=== PATIENT | male | born 1970 | race Caucasian/White ===

== ENCOUNTER 2016-11-05 23:16 | Emergency (ER) | payer SELFPAY ==
[~2016-11-05] VITALS: Ht 182.9 cm; Wt 99.8 kg
[2016-11-05] MEDS ORDERED: ONDANSETRON PF 4 MG/2 ML VIAL. IV ONE (23:45)
[2016-11-05] MEDS ORDERED: HYDROMORPHONE 2 MG/ML VIAL. IV/SQ PRN (23:45)
[2016-11-05] MEDS ORDERED: IV NORMAL SALINE 1000ML BAG 1,000 ML IV SCH (23:45)
[2016-11-05] MEDS ORDERED: KETOROLAC 15 MG/ML VIAL. IV ONE (23:55)
[2016-11-06 00:03] LABS: BASO # 0.1 x10^3/uL (0.0-0.2); BASO % 1 % (0-3); EOS % 1 % (0-3); HEMATOCRIT 44.3 % (39.0-53.0); LYMPH % 28 % (24-48); MEAN CORPUSCULAR HEMOGLOBIN 30 pg (25-35); MEAN CORPUSCULAR HGB CONC 34 g/dL (31-37); MEAN CORPUSCULAR VOLUME 89 fL (79-100); MONO % 11 % (0-9); NEUT % 59 % (31-73); PLATELET COUNT 231 x10^3/uL (140-400); RED BLOOD COUNT 5.01 x10^6/uL (4.30-5.70); RED CELL DISTRIBUTION WIDTH 13.2 % (11.5-14.5); WHITE BLOOD COUNT 10.7 x10^3/uL (4.0-11.0)
[2016-11-06 00:14] LABS: CALCIUM 8.4 mg/dL (8.5-10.1); CREATININE 1.2 mg/dL (0.7-1.3); GFR 65.2; POTASSIUM 4.1 mmol/L (3.5-5.1)
[2016-11-06 00:19] LABS: ALBUMIN 3.4 g/dL (3.4-5.0); ALBUMIN/GLOBULIN RATIO 0.9 (1.0-1.7); TOTAL BILIRUBIN 0.2 mg/dL (0.2-1.0)
[2016-11-06 01:06] LABS: BILIRUBIN,URINE NEGATIVE (NEG); GLUCOSE,URINE NEGATIVE (NEG); NITRITE,URINE NEGATIVE (NEG); PROTEIN,URINE NEGATIVE (NEG-TRACE); UROBILINOGEN,URINE 0.2 mg/dL (0.2 mg/dL)
[2016-11-06 01:10] LABS: BACTERIA,URINE 0 /HPF (0-FEW); RBC,URINE OCC /HPF (0-2); WBC,URINE OCC /HPF (0-4)
[2016-11-06 01:11] LABS: SQUAMOUS EPITHELIAL CELL,UR FEW /LPF
--- NOTE | 2016-11-06 01:15 | RAD ---
INDICATION: Abdominal pain. COMPARISON: February 09, 2014 CT TECHNIQUE: Transabdominal ultrasound images are obtained of the abdomen. FINDINGS: Gallstones are visualized. There is some hyperechoic masslike structures the liver measuring up to 33 millimeter. Common bile duct not grossly dilated. Pancreas poorly seen IVC segmentally seen at liver. No right hydronephrosis. IMPRESSION: Liver is echogenic. Nonspecific but can be seen with fatty infiltration. There are least 3 echogenic solid-appearing lesions within the liver. Nonspecific appearance on ultrasound. Could be from causes such as hemangioma but more worrisome neoplastic causes are not excluded. Follow-up nonemergent CT or MRI liver protocol could better evaluate. Gallstones are seen. Electronically signed by: Keith Ricci (Nov 06, 2016 01:12:40)
[2016-11-06 01:31] VITALS: BP 116/78
[2016-11-06] MEDS ORDERED: HYOS0.1265 SL (01:36)
[2016-11-06] MEDS ORDERED: IBUP-1007 PO (01:36)
--- NOTE | 2016-11-06 01:37 | PHYS DOC ---
Past Medical History Past Medical History: Depression, GERD Additional Past Medical Histor: hernia Past Surgical History: Other Additional Past Surgical Histo: R leg, ankle and wrist frx repair Alcohol Use: Rarely Drug Use: Marijuana Adult General Chief Complaint Chief Complaint: ABDOMINAL PAIN HPI HPI Patient is a 46 year old gentleman who has no past medical history presents here today complaining of abdominal pain in the right upper quadrant. Patient denies any history of coronary disease, hypertension, diabetes, CHF, COPD, liver longer kidney problems. Patient has any abdominal surgeries in the past. Patient reports he smokes no alcohol or drugs. Patient is not allergic to any medications. Patient denies any fevers shakes chills. Patient reports she's had vomiting 1 prior to arrival. Patient denies any dysuria frequency or urgency. Patient reports the pain started 2 hours prior to arrival and is in the right upper area and radiates to his back. Patient reports that at dinner he ate a breakfast pole approximately one hour later he started experiencing the pain. Patient denies any chest pain or shortness of breath. Patient denies any pain radiating down his jaw or diaphoresis. Patient denies any increased pain with exertion or ambulation. She denies any history of CAD in the past or family history of CAD. Smoke cessation was discussed with the patient. Patient's physical exam was significant for tenderness to palpation to his right upper quadrant. Patient had no rebound or guarding. Patient has normal active bowel sounds. Patient has no Hayes sign. Patient has no McBurney's point tenderness. Patient has no palpable mass or pulsatile mass. Patient is not exhibiting any signs or symptoms of be consistent with an acute surgical abdomen. Repeat examination at 1:30 AM reveals a completely nontender abdomen. Patient was reevaluated patient's sleeping comfortably in bed without any discomfort whatsoever. Patient has no tenderness to palpation. Patient is no rebound or guarding. Normoactive bowel sounds. Patient has no signs or symptoms of be consistent with an acute surgical abdomen. Patient's ultrasound of his right upper quadrant revealed a echogenic liver that is nonspecific but could be consistent with a fatty infiltration. There were 3 echogenic solid appearing lesions within the liver. These are nonspecific and could be consistent with a hemangioma however a possible neoplasm could be a cause. I discussed with the patient is ultrasound results and the need for him to follow-up with a primary care physician in order to get this worked up further as an outpatient with either CT or MRI. Patient nursing this and he will follow up as instructed. A/P #1 right upper quadrant pain. Patient's ultrasound showed stones in his gallbladder. Pain is most likely secondary to cholelithiasis. Patient likely had the stone passed as he is currently asymptomatic and the, mild duct does not appear to be grossly dilated on ultrasound. Patient was given pain medicines in the ER is currently pain-free and comfortable. I discussed with the patient the need to follow-up closely as an outpatient for further evaluation of the echogenic appearing lesions in his liver. Patient currently does not meet criteria for any further inpatient or emergent evaluation at this time. Patient may resume further evaluation of his lesions as an outpatient. Patient was instructed to return to the ER if he has any new or concerning symptoms or the pain returns. And is currently agreeable to this plan and has no further questions or concerns. All questions were answered. Review of Systems Review of Systems Constitutional: Denies fever or chills [] Eyes: Denies change in visual acuity, redness, or eye pain [] HENT: Denies nasal congestion or sore throat [] Respiratory: Denies cough or shortness of breath [] Cardiovascular: No additional information not addressed in HPI [] All other review systems are negative except as documented in the history of present illness. Current Medications Current Medications Current Medications Medications (Trade) Dose Ordered Sig/Duyen Start Time Stop Time Status Last Admin Dose Admin Hydromorphone HCl 0.5 mg 0.5 mg PRN Q15MIN PRN 11/05/16 23:45 11/06/16 23:44 11/05/16 23:47 0.5 MG Ketorolac Tromethamine (Toradol) 15 mg 1X ONCE 11/05/16 23:55 11/05/16 23:56 DC 11/06/16 00:00 15 MG Ondansetron HCl (Zofran) 4 mg 1X ONCE 11/05/16 23:45 11/05/16 23:46 DC 11/05/16 23:47 4 MG Sodium Chloride (Iv Sodium Chloride 0.9% 1000ml Bag) 1,000 ml @ 1,000 mls/hr Q1H 11/05/16 23:45 11/06/16 00:44 DC 11/05/16 23:45 1,000 MLS/HR Allergies Allergies Allergies Coded Allergies Type Severity Reaction Last Updated Verified No Known Drug Allergies 02/11/14 No Physical Exam Physical Exam Constitutional: Well developed, well nourished, no acute distress, non-toxic appearance. [] HENT: Normocephalic, atraumatic, bilateral external ears normal, oropharynx moist, no oral exudates, nose normal. [] Eyes: PERRLA, EOMI, conjunctiva normal, no discharge. [] Neck: Normal range of motion, no tenderness, supple, no stridor. [] Cardiovascular:Heart rate regular rhythm, Lungs & Thorax: Bilateral breath sounds clear to auscultation [] Skin: Warm, dry, no erythema, no rash. [] Back: No tenderness, no CVA tenderness. [] Extremities: No tenderness, no cyanosis, no clubbing, ROM intact, no edema. [] Neurologic: Alert and oriented X 3, normal motor function, normal sensory function, no focal deficits noted. [] Psychologic: Affect normal, judgement normal, mood normal. [] Current Patient Data Vital Signs Vital Signs Date Time Temp Pulse Resp B/P Pulse Ox O2 Delivery O2 Flow Rate FiO2 11/05/16 23:47 16 Room Air 11/05/16 23:18 97.9 78 145/117 98 97.9 Lab Values Laboratory Tests Test 11/05/16 23:54 11/06/16 00:53 White Blood Count 10.7x10^3/uL (4.0-11.0) Red Blood Count 5.01x10^6/uL (4.30-5.70) Hemoglobin 15.0g/dL (13.0-17.5) Hematocrit 44.3% (39.0-53.0) Mean Corpuscular Volume 89fL (79-100) Mean Corpuscular Hemoglobin 30pg (25-35) Mean Corpuscular Hemoglobin Concent 34g/dL (31-37) Red Cell Distribution Width 13.2% (11.5-14.5) Platelet Count 231x10^3/uL (140-400) Neutrophils (%) (Auto) 59% (31-73) Lymphocytes (%) (Auto) 28% (24-48) Monocytes (%) (Auto) 11% (0-9) H Eosinophils (%) (Auto) 1% (0-3) Basophils (%) (Auto) 1% (0-3) Neutrophils # (Auto) 6.3x10^3uL (1.8-7.7) Lymphocytes # (Auto) 3.0x10^3/uL (1.0-4.8) Monocytes # (Auto) 1.2x10^3/uL (0.0-1.1) H Eosinophils # (Auto) 0.1x10^3/uL (0.0-0.7) Basophils # (Auto) 0.1x10^3/uL (0.0-0.2) Sodium Level 139mmol/L (136-145) Potassium Level 4.1mmol/L (3.5-5.1) Chloride Level 104mmol/L (98-107) Carbon Dioxide Level 24mmol/L (21-32) Anion Gap 11 (6-14) Blood Urea Nitrogen 21mg/dL (8-26) Creatinine 1.2mg/dL (0.7-1.3) Estimated GFR (Cockcroft-Gault) 65.2 BUN/Creatinine Ratio 18 (6-20) Glucose Level 109mg/dL (70-99) H Calcium Level 8.4mg/dL (8.5-10.1) L Total Bilirubin 0.2mg/dL (0.2-1.0) Aspartate Amino Transferase (AST) 14U/L (15-37) L Alanine Aminotransferase (ALT) 25U/L (16-63) Alkaline Phosphatase 85U/L (46-116) Total Protein 7.0g/dL (6.4-8.2) Albumin 3.4g/dL (3.4-5.0) Albumin/Globulin Ratio 0.9 (1.0-1.7) L Lipase 321U/L (73-393) Urine Collection Type Unknown Urine Color Yellow Urine Clarity Clear Urine pH 6.0 Urine Specific Bimble 1.020 Urine Protein Negativemg/dL (NEG-TRACE) Urine Glucose (UA) Negativemg/dL (NEG) Urine Ketones (Stick) Negativemg/dL (NEG) Urine Blood Negative (NEG) Urine Nitrite Negative (NEG) Urine Bilirubin Negative (NEG) Urine Urobilinogen Dipstick 0.2mg/dL (0.2 mg/dL) Urine Leukocyte Esterase Negative (NEG) Urine RBC Occ/HPF (0-2) Urine WBC Occ/HPF (0-4) Urine Squamous Epithelial Cells Few/LPF Urine Bacteria 0/HPF (0-FEW) Urine Mucus Slight/LPF Laboratory Tests 11/05/16 23:54 Laboratory Tests 11/05/16 23:54 EKG EKG [] Radiology/Procedures Radiology/Procedures [] Course & Med Decision Making Course & Med Decision Making Pertinent Labs and Imaging studies reviewed. (See chart for details) [] Dragon Disclaimer Dragon Disclaimer This electronic medical record was generated, in whole or in part, using a voice recognition dictation system. Departure Departure Impression: Primary Impression: Abdominal pain Additional Impressions: Cholelithiasis Liver mass Disposition: HOME, SELF-CARE Condition: IMPROVED Referrals: NO PCP (PCP) Patient Instructions: Abdominal Pain, Biliary Colic Additional Instructions: Please follow up with a primary care physician to further evaluate the 3 echogenic lesions that were seen on her ultrasound and her liver. These are most likely secondary to a hemangioma however your doctor will need to work this up to make sure that this isn't early cancer. Return to the ER if her pain worsens or if they have any further concerns. Return to the ER if you have any fevers. Scripts Hyoscyamine Sulfate (Levsin-Sl)0.125 Mg Tab.subl0.125 Mg SL Q6-8HRS PRN abdominal cramps #10 Prov:JANET BYRNE MD 11/06/16 Ibuprofen 600 Mg [id number] Mg PO PRN Q6HRS PRN PAIN #20 TAB Prov:JANET BYRNE MD 11/06/16 Problem Qualifiers JANET BYRNE MD Nov 06, 2016 01:37
== END 2016-11-06 02:00 | disposition home or self-care (01) ==
LOC: ER 23:16
DX: K80.20 Calculus of gallbladder without cholecystitis without obstruction (principal); R16.0 Hepatomegaly, not elsewhere classified; K21.9 Gastro-esophageal reflux disease without esophagitis; E11.9 Type 2 diabetes mellitus without complications; I11.0 Hypertensive heart disease with heart failure; I50.9 Heart failure, unspecified; J44.9 Chronic obstructive pulmonary disease, unspecified; F12.10 Cannabis abuse, uncomplicated; I25.10 Atherosclerotic heart disease of native coronary artery without angina pectoris
CPT/HCPCS: 36415; 76705; 80053; 81001; 83690; 85027; 96361; 96374; 96375; 99285; J1170; J1885; J2405; J7030

== ENCOUNTER 2016-11-13 11:50 | Emergency (ER) | payer SELFPAY ==
[~2016-11-13] VITALS: Ht 180.3 cm; Wt 99.8 kg
[~2016-11-13 11:50] MED LIST: HYOS0.1265 SL; IBUP-1007 PO
[2016-11-13] MEDS ORDERED: KETOROLAC TROMETHAMINE 30 MG/ML INJ. IV ONE (12:15)
[2016-11-13] MEDS ORDERED: ONDANSETRON PF 4 MG/2 ML VIAL. IV ONE (12:15)
--- NOTE | 2016-11-13 12:36 | PHYS DOC ---
Past Medical History Past Medical History: Depression, GERD Additional Past Medical Histor: hernia, gall stones Past Surgical History: Other Additional Past Surgical Histo: R leg, ankle and wrist frx repair Additional Information: 1 ppd Alcohol Use: Rarely Drug Use: Marijuana Adult General Chief Complaint Chief Complaint: ABDOMINAL PAIN HPI HPI Patient is a 46 year old male with recent diagnosis of symptomatic cholelithiasis who presents with right upper quadrant pain and nausea starting around 8 AM this morning. He ate a "breakfast bowl" around 6:30 AM today. States this pain is constant, severe, radiating to his back, exactly like prior presentation for a symptomatic cholelithiasis. He denies emesis, fever or chills , diarrhea, chest pain, dyspnea, cough. Review of Systems Review of Systems Constitutional: Denies fever or chills [] Eyes: Denies change in visual acuity, redness, or eye pain [] HENT: Denies nasal congestion or sore throat [] Respiratory: Denies cough or shortness of breath [] Cardiovascular: No additional information not addressed in HPI [] GI: Denies vomiting, bloody stools or diarrhea [] : Denies dysuria or hematuria [] Musculoskeletal: Denies back pain or joint pain [] Integument: Denies rash or skin lesions [] Neurologic: Denies headache, focal weakness or sensory changes [] Endocrine: Denies polyuria or polydipsia [] Current Medications Current Medications Current Medications Medications (Trade) Dose Ordered Sig/[facility] Start Time Stop Time Status Last Admin Dose Admin Fentanyl Citrate (Fentanyl 2ml Vial) 75 mcg 1X ONCE 11/13/16 13:00 11/13/16 13:01 DC 11/13/16 12:52 75 MCG Ketorolac Tromethamine (Toradol) 15 mg 1X ONCE 11/13/16 12:15 11/13/16 12:16 DC 11/13/16 12:15 15 MG Ondansetron HCl (Zofran) 4 mg 1X ONCE 11/13/16 12:15 11/13/16 12:16 DC 11/13/16 12:27 4 MG Allergies Allergies Allergies Coded Allergies Type Severity Reaction Last Updated Verified No Known Drug Allergies 02/11/14 No Physical Exam Physical Exam Constitutional: Well developed, well nourished, no acute distress, non-toxic appearance. [] HENT: Normocephalic, atraumatic, bilateral external ears normal, oropharynx moist, nose normal. [] Eyes: PERRLA, EOMI. [] Neck: Normal range of motion, supple. [] Cardiovascular:Heart rate regular rhythm [] Lungs & Thorax: Bilateral breath sounds clear to auscultation [] Abdomen: Bowel sounds normal, soft, moderate right upper quadrant tenderness, no guarding or rebound. [] Skin: Warm, diaphoretic, no erythema, no rash. [] Back: No tenderness, no CVA tenderness. [] Extremities: No tenderness, ROM intact, no edema. [] Neurologic: Alert and oriented X 3, normal motor function, normal sensory function, no focal deficits noted. [] Psychologic: Affect normal, judgement normal, mood normal. [] Current Patient Data Vital Signs Vital Signs Date Time Temp Pulse Resp B/P Pulse Ox O2 Delivery O2 Flow Rate FiO2 11/13/16 13:30 66 18 147/88 94 Room Air 11/13/16 11:52 98.3 98.3 Lab Values Laboratory Tests Test 11/13/16 12:20 White Blood Count 9.1x10^3/uL (4.0-11.0) Red Blood Count 5.32x10^6/uL (4.30-5.70) Hemoglobin 16.0g/dL (13.0-17.5) Hematocrit 47.4% (39.0-53.0) Mean Corpuscular Volume 89fL (79-100) Mean Corpuscular Hemoglobin 30pg (25-35) Mean Corpuscular Hemoglobin Concent 34g/dL (31-37) Red Cell Distribution Width 12.9% (11.5-14.5) Platelet Count 194x10^3/uL (140-400) Neutrophils (%) (Auto) 51% (31-73) Lymphocytes (%) (Auto) 40% (24-48) Monocytes (%) (Auto) 7% (0-9) Eosinophils (%) (Auto) 1% (0-3) Basophils (%) (Auto) 1% (0-3) Neutrophils # (Auto) 4.7x10^3uL (1.8-7.7) Lymphocytes # (Auto) 3.6x10^3/uL (1.0-4.8) Monocytes # (Auto) 0.6x10^3/uL (0.0-1.1) Eosinophils # (Auto) 0.1x10^3/uL (0.0-0.7) Basophils # (Auto) 0.1x10^3/uL (0.0-0.2) Sodium Level 140mmol/L (136-145) Potassium Level 4.8mmol/L (3.5-5.1) Chloride Level 104mmol/L (98-107) Carbon Dioxide Level 24mmol/L (21-32) Anion Gap 12 (6-14) Blood Urea Nitrogen 19mg/dL (8-26) Creatinine 0.9mg/dL (0.7-1.3) Estimated GFR (Cockcroft-Gault) 90.8 Glucose Level 91mg/dL (70-99) Calcium Level 9.2mg/dL (8.5-10.1) Total Bilirubin 0.4mg/dL (0.2-1.0) Direct Bilirubin 0.1mg/dL (0.0-0.2) Aspartate Amino Transferase (AST) 32U/L (15-37) Alanine Aminotransferase (ALT) 34U/L (16-63) Alkaline Phosphatase 96U/L (46-116) Total Protein 7.4g/dL (6.4-8.2) Albumin 3.6g/dL (3.4-5.0) Lipase 289U/L (73-393) Laboratory Tests 11/13/16 12:20 Laboratory Tests 11/13/16 12:20 Radiology/Procedures Radiology/Procedures Ultrasound right upper quadrant IMPRESSION: Cholelithiasis. Associated wall thickening and tenderness suggests possible cholecystitis. Clinical correlation advised. Fatty infiltration of the liver. Solid masses are seen in the liver. The etiology is unclear. They may reflect hemangiomas. Other etiologies are not excluded DICTATED and SIGNED BY: GAIL PRASAD MD DATE: 11/13/16 1310 Course & Med Decision Making Course & Med Decision Making Pertinent Labs and Imaging studies reviewed. (See chart for details) Laboratory evaluation is unremarkable. He is feeling better after medications. Abdomen exam is soft and nontender. Ultrasound as above; however without pericholecystic fluid or gallbladder wall thickening over 5mm, does not appear to have cholecystitis at this time. Discussed continuing management for symptomatic cholelithiasis. He plans to keep his follow-up appointment tomorrow for imaging of his abdominal masses. He is given surgery clinic information to seek consultation. Discussed dietary modification gallstones. Return precautions given. He understands and agrees with plan. Dragon Disclaimer Sammi Disclaimer This electronic medical record was generated, in whole or in part, using a voice recognition dictation system. Departure Departure Impression: Primary Impression: Symptomatic cholelithiasis Disposition: HOME, SELF-CARE Condition: STABLE Referrals: SHILA ARANA MD Patient Instructions: Cholelithiasis, [id number] Additional Instructions: Take ibuprofen as needed for pain. Take zofran as needed for nausea. Follow up with your primary care doctor and general surgery clinic. Please call for appointment. Return for any concerns. Scripts Ondansetron (Zofran Odt)4 Mg Tab.rapdis1 Tab SL Q8HRS #10 TAB Prov:Ez SAINI MD 11/13/16 Ez SAINI MD Nov 13, 2016 12:36
[2016-11-13 12:44] LABS: BASO # 0.1 x10^3/uL (0.0-0.2); BASO % 1 % (0-3); EOS % 1 % (0-3); HEMATOCRIT 47.4 % (39.0-53.0); LYMPH # 3.6 x10^3/uL (1.0-4.8); LYMPH % 40 % (24-48); MEAN CORPUSCULAR HEMOGLOBIN 30 pg (25-35); MEAN CORPUSCULAR HGB CONC 34 g/dL (31-37); MEAN CORPUSCULAR VOLUME 89 fL (79-100); MONO % 7 % (0-9); NEUT % 51 % (31-73); PLATELET COUNT 194 x10^3/uL (140-400); RED BLOOD COUNT 5.32 x10^6/uL (4.30-5.70); RED CELL DISTRIBUTION WIDTH 12.9 % (11.5-14.5); WHITE BLOOD COUNT 9.1 x10^3/uL (4.0-11.0)
[2016-11-13 12:57] LABS: CALCIUM 9.2 mg/dL (8.5-10.1); CREATININE 0.9 mg/dL (0.7-1.3); GFR 90.8; POTASSIUM 4.8 mmol/L (3.5-5.1)
[2016-11-13] MEDS ORDERED: FENTANYL PF 100 MCG/2 ML VIAL. IV ONE (13:00)
[2016-11-13 13:04] LABS: ALBUMIN 3.6 g/dL (3.4-5.0); DIRECT BILIRUBIN 0.1 mg/dL (0.0-0.2); TOTAL BILIRUBIN 0.4 mg/dL (0.2-1.0); TOTAL PROTEIN 7.4 g/dL (6.4-8.2)
--- NOTE | 2016-11-13 13:16 | RAD ---
Indication right upper quadrant pain. Grayscale imaging was performed. Examination was targeted to the right upper quadrant. Note is made of a similar examination one week ago. Increased attenuation of the ultrasound beam by the liver compatible with fatty infiltration is noted similar to the previous exam. Known solid masses, demonstrated on the previous examination, which may represent hemangiomas are noted. The largest measures 3.3 cm in greatest dimension. Other etiologies accounting for the masses are not excluded. Known cholelithiasis is reproduced. There is mild gallbladder wall thickening. The patient, additionally, was tender in the right upper quadrant during the exam (positive Hayes's sign) cholecystitis not excluded. The right kidney is unremarkable. IMPRESSION: Cholelithiasis. Associated wall thickening and tenderness suggests possible cholecystitis. Clinical correlation advised. Fatty infiltration of the liver. Solid masses are seen in the liver. The etiology is unclear. They may reflect hemangiomas. Other etiologies are not excluded
[2016-11-13 13:30] VITALS: BP 147/88
[2016-11-13] MEDS ORDERED: ONDA4TAB10 SL (13:42)
== END 2016-11-13 14:12 | disposition home or self-care (01) ==
LOC: ER 11:50
DX: K80.20 Calculus of gallbladder without cholecystitis without obstruction (principal); F32.9 Major depressive disorder, single episode, unspecified; K21.9 Gastro-esophageal reflux disease without esophagitis; F17.200 Nicotine dependence, unspecified, uncomplicated; F12.10 Cannabis abuse, uncomplicated
CPT/HCPCS: 36415; 76705; 80048; 80076; 83690; 85027; 96374; 96375; 99285; J1885; J2405; J3010